=== PATIENT | male | born 1980 | race Two or more races ===

== ENCOUNTER 2024-02-13 16:31 | Inpatient (IN) | payer MEDICAID ==
[~2024-02-13] VITALS: Ht 172.7 cm; Wt 72.6 kg
[2024-02-13 17:03] LABS: BASOPHILS # (AUTO) 0.1 K/uL (0.0-0.2); BASOPHILS % (AUTO) 0.9 % (0.0-2.0); EOSINOPHILS # (AUTO) 0.1 K/uL (0.0-0.7); HEMATOCRIT 43 % (39-51); HEMOGLOBIN 14.1 g/dL (13.5-17.5); LYMPHOCYTES # (AUTO) 1.4 K/uL (0.8-4.8); LYMPHOCYTES % (AUTO) 15.3 % (20.0-44.0); MEAN CORPUSCULAR HEMOGLOBIN 32 PG (26.0-33.0); MEAN CORPUSCULAR HGB CONC 33 g/dl (31.0-36.0); MEAN CORPUSCULAR VOLUME 97 fL (80-96); MONOCYTES # (AUTO) 0.7 K/uL (0.1-1.30); MONOCYTES % (AUTO) 7.6 % (2.0-12.0); NEUTROPHILS # (AUTO) 6.8 K/uL (1.8-8.9); NEUTROPHILS % (AUTO) 75.2 % (43.0-81.0); PLATELET COUNT (AUTO) 275 K/uL (150-450); RED BLOOD CELL COUNT(AUTO) 4.38 MIL/uL (4.5-6.0); RED CELL DISTRIBUTION WIDTH 15.4 % (11.5-15.0)
[2024-02-13 17:10] LABS: CALCIUM, SERUM 9.8 mg/dL (8.5-10.1); CARBON DIOXIDE 30 mmol/L (21-32); CHLORIDE 101 mmol/L (98-107); GLUCOSE 76 mg/dL (74-106); POTASSIUM 3.8 mmol/L (3.5-5.1); SODIUM SERUM 135 mmol/L (136-145); UREA NITROGEN, BLOOD 11 mg/dL (7-18)
[2024-02-13 17:15] LABS: ALANINE AMINOTRANSFERASE 92 U/L (12-78); ALBUMIN 4.2 g/dL (3.4-5.0); ALKALINE PHOSPHATASE 76 U/L (46-116); ASPARTATE AMINOTRANSFERASE 83 U/L (15-37); BILIRUBIN,DIRECT 0.3 mg/dL (0.0-0.2); TOTAL PROTEIN, SERUM 8.1 g/dL (6.4-8.2)
[2024-02-13 18:04] LABS: ALCOHOL, BLOOD < 3 mg/dL (0-10); SERUM AMMONIA 52 umol/L (11-32)
[2024-02-13] MEDS ORDERED: LORAZEPAM INJ 2 MG/ML VIAL ONE (18:19)
[2024-02-13] MEDS: IV NS 0.9% 1,000 ML BAG IV ONE (18:23)
[2024-02-13 18:47] LABS: AMPHETAMINE, URINE NEGATIVE (NEGATIVE); BARBITURATE, URINE NEGATIVE (NEGATIVE); BENZODIAZEPINE, URINE POSITIVE (NEGATIVE); CANNABINOID, URINE NEGATIVE (NEGATIVE); COCCAINE, URINE NEGATIVE (NEGATIVE); PHENCYCLIDINE SCREEN,URINE NEGATIVE (NEGATIVE)
[2024-02-13 18:48] LABS: OPIATE, URINE POSITIVE (NEGATIVE)
[2024-02-13] MEDS: LORAZEPAM INJ 2 MG/ML VIAL IV ONE (19:23)
[2024-02-13] MEDS ORDERED: ONDANSETRON HCL/PF 4 MG/2 ML VIAL ONE (19:40)
[2024-02-13] MEDS: ONDANSETRON HCL/PF - ER 4 MG/2 ML VIAL IV ONE (19:42)
[2024-02-13] MEDS ORDERED: DIPH50CA37 PO (19:43)
[2024-02-13] MEDS ORDERED: hydrALAZINE HCL IV 20 MG VIAL IV PRN (20:00)
[2024-02-13] MEDS ORDERED: MORPHINE SULFATE INJ 2 MG/ML DISP.SYRIN IV PRN (20:00)
[2024-02-13] MEDS ORDERED: ACETAMINOPHEN 325 MG TABLET PO PRN (20:00)
[2024-02-13] MEDS ORDERED: ONDANSETRON HCL/PF 4 MG/2 ML VIAL IVP PRN (20:00)
[2024-02-13 20:40] VITALS: O2SAT 100
[2024-02-13] MEDS: HEPARIN SODIUM, PORCINE 5000 UNITS/1 ML VIAL SQ SCH (22:14)
[2024-02-13] MEDS: diphenhydrAMINE HCL 50 MG CAPSULE PO PRN (23:34)
[2024-02-14 06:39] LABS: BASOPHILS % (AUTO) 0.7 % (0.0-2.0); EOSINOPHILS # (AUTO) 0.2 K/uL (0.0-0.7); EOSINOPHILS % (AUTO) 2.6 % (0.0-6.0); HEMATOCRIT 41 % (39-51); HEMOGLOBIN 13.6 g/dL (13.5-17.5); LYMPHOCYTES # (AUTO) 2.5 K/uL (0.8-4.8); LYMPHOCYTES % (AUTO) 35.6 % (20.0-44.0); MEAN CORPUSCULAR HEMOGLOBIN 33 PG (26.0-33.0); MEAN CORPUSCULAR HGB CONC 33 g/dl (31.0-36.0); MEAN CORPUSCULAR VOLUME 99 fL (80-96); MONOCYTES # (AUTO) 0.7 K/uL (0.1-1.30); MONOCYTES % (AUTO) 9.4 % (2.0-12.0); NEUTROPHILS # (AUTO) 3.6 K/uL (1.8-8.9); NEUTROPHILS % (AUTO) 51.7 % (43.0-81.0); PLATELET COUNT (AUTO) 247 K/uL (150-450); RED BLOOD CELL COUNT(AUTO) 4.16 MIL/uL (4.5-6.0); RED CELL DISTRIBUTION WIDTH 15.9 % (11.5-15.0)
[2024-02-14 06:52] LABS: ALBUMIN 3.1 g/dL (3.4-5.0); BILIRUBIN,TOTAL 0.7 mg/dL (0.2-1.0); CALCIUM, SERUM 8.9 mg/dL (8.5-10.1); CREATININE 0.8 mg/dL (0.6-1.3); MAGNESIUM 2.5 mg/dL (1.8-2.4); PHOSPHORUS 4.3 mg/dL (2.5-4.9); POTASSIUM 4.4 mmol/L (3.5-5.1)
[2024-02-14 07:30] VITALS: BP 115/77; TEMP 98.6; O2SAT 98
[2024-02-14 16:00] VITALS: BP 113/78; TEMP 98.4; O2SAT 97
[2024-02-14] MEDS ORDERED: METH4TAB3 PO (17:14)
== END 2024-02-14 18:34 | disposition home or self-care (01) | DRG 48 ==
LOC: ER 17:36 → MED 21:19
PROVIDERS: ADMIT Internal Medicine; ATTEND Internal Medicine
DX: G58.8 Other specified mononeuropathies (principal); E72.4 Disorders of ornithine metabolism; F17.210 Nicotine dependence, cigarettes, uncomplicated; R53.1 Weakness; M51.36 Other intervertebral disc degeneration, lumbar region; R74.01 Elevation of levels of liver transaminase levels; H52.13 Myopia, bilateral; R51.9 Headache, unspecified; G47.00 Insomnia, unspecified; Z71.6 Tobacco abuse counseling; R78.89 Finding of other specified substances, not normally found in blood; M48.061 Spinal stenosis, lumbar region without neurogenic claudication
CPT/HCPCS: 36415; 70450-TC; 70551-TC; 71045-TC; 72131-TC; 72148-TC; 76700-TC; 80048-TC; 80053-TC; 80076-TC; 82140-TC; 82962-TC; 83735-TC; 83880; 84100-TC; 84439-TC; 84443-TC; 84484-TC; 85025-TC; G0378; G0480; J1644; J2060; J2405; Q0163

== ENCOUNTER 2024-04-18 21:22 | Emergency (ER) | payer MEDICAID, OTHER ==
[~2024-04-18 21:22] MED LIST: DIPH50CA37 PO; METH4TAB3 PO
== END 2024-04-19 02:04 | disposition left against medical advice (07) ==
LOC: ER 21:44
DX: Z04.1 Encounter for examination and observation following transport accident (principal); Z53.21 Procedure and treatment not carried out due to patient leaving prior to being seen by health care provider